=== PATIENT | female | born 1995 | race Caucasian/White ===

== ENCOUNTER 2017-04-13 14:19 | Emergency (ER) | payer OTHER ==
[2017-04-13 14:50] VITALS: BP 113/68
--- NOTE | 2017-04-13 15:05 | UC ---
Complaint Female HPI - HPI Summary HPI Summary: Pt c/o sudden onset of LLQ pain. Pt reports a history of ovarian cysts. - History Of Current Complaint Chief Complaint: UCGU Stated Complaint: OVARIAN PAIN Time Seen by Provider: 04/13/17 14:49 Hx Obtained From: Patient Hx Last Menstrual Period: 04/09/17 ?: No Onset/Duration: Sudden Onset, Lasting Hours Timing: Intermittent Severity Initially: Mild Severity Currently: Mild Character: Sharp, Dull, Colicy Aggravating Factor(s): Nothing Associated Signs And Symptoms: Positive: Negative - Risk Factors Ectopic Risk Factor: Negative Ovarian Torsion Risk Factor: Ovarian Cysts/Tumors - Allergies/Home Medications Allergies/Adverse Reactions: Allergies Allergy/AdvReac Type Severity Reaction Status Date / Time No Known Allergies Allergy Verified 04/13/17 14:50 Home Medications: Home Medications Sertraline* [Zoloft*] 50 mg PO DAILY 04/13/17 [History Confirmed 04/13/17] PMH/Surg Hx/FS Hx/Imm Hx Previously Healthy: Yes - Surgical History Surgical History: Yes Surgery Procedure, Year, and Place: bilateral knee surgery - Family History Known Family History: Positive: Cardiac Disease - maternal grandfather - Social History Occupation: Student Lives: With Family Alcohol Use: Occasionally Substance Use Type: None Smoking Status (MU): Never Smoked Tobacco Have You Smoked in the Last Year: No Review of Systems Constitutional: Negative Skin: Negative Eyes: Negative ENT: Negative Respiratory: Negative Cardiovascular: Negative Gastrointestinal: Abdominal Pain Genitourinary: Negative Motor: Negative Neurovascular: Negative Musculoskeletal: Negative Neurological: Negative Psychological: Negative Is Patient Immunocompromised?: No All Other Systems Reviewed And Are Negative: Yes Physical Exam Triage Information Reviewed: Yes Appearance: Well-Appearing Vital Signs: Initial Vital Signs Temp 99 F 04/13/17 14:45 Pulse 79 04/13/17 14:45 Resp 16 04/13/17 14:45 BP 113/68 04/13/17 14:45 Pulse Ox 99 04/13/17 14:45 Vital Signs Reviewed: Yes Eye Exam: Normal ENT Exam: Normal Dental Exam: Normal Neck exam: Normal Respiratory Exam: Normal Cardiovascular Exam: Normal Abdomen Description: Positive: Other: - LLQ tenderness Musculoskeletal Exam: Normal Neurological Exam: Normal Psychological Exam: Normal Skin Exam: Normal Complaint Female Dx - Course Course Of Treatment: IMPRESSION: Negative pelvic ultrasound - Differential Dx/Diagnosis Differential Diagnosis/HQI/PQRI: Ovarian Cyst, Other - pelvic pain Provider Diagnoses: pelvic pain Discharge - Discharge Plan Condition: Stable Disposition: HOME Patient Education Materials: Pelvic Pain in Women (ED) Referrals: Non Staff,Doctor [Primary Care Provider] - If Needed
--- NOTE | 2017-04-13 15:42 | RAD ---
Indication: LEFT pelvic pain. History of ovarian cysts. Comparison: No relevant prior exams available on the [facility] [place] [facility] for comparison. Technique: Transvaginal pelvic ultrasound. Report: Unremarkable 6.4 x 3.2 x 4.1 cm anteverted uterus. 6.1 mm endometrium. Nabothian cysts at the cervix. Trace fluid in the endocervical canal. Physiologic small volume of free pelvic fluid. 3.6 x 2.2 x 2.9 cm RIGHT ovary with documented vascular flow is remarkable for multiple small follicles and a dominant 1.3 cm diameter follicle. 3.0 x 1.6 x 2.7 cm LEFT ovary with documented vascular flow is remarkable for small follicles only. Negative for extra ovarian adnexal region lesions. IMPRESSION: Negative pelvic ultrasound
== END 2017-04-13 15:59 | disposition home or self-care (01) ==
LOC: UCCORT 14:19
DX: R10.2 Pelvic and perineal pain (principal); R10.32 Left lower quadrant pain
CPT/HCPCS: 76830; 81003; 99211; G0463